=== PATIENT | female | born 1950 | race African-American/Black ===

== ENCOUNTER → 2016-05-11 | Outpatient (CLI) | payer OTHER ==
[~2016-05-11] MED LIST: ACET500T3 PO; AMLO10 PO; AMLO10TA2 PO; AMLO5TAB2 PO; ASCO500C PO; ATOR10TA15 PO; CALC1TAB12 PO; CALTCHW5 PO; CALTTAB PO; CLAR10CA3 PO; FERR1TAB36 PO; FERR325C PO; HYDR12.56 PO; HYDR25TA5 PO; K-TA10TA PO; LIPI80TA PO; METO-338 PO; NITR0.4S SL; PROT40TA PO; SPIR25 PO; SPIR25TA PO; VALT500T PO; VITACAP7 PO
[2016-05-11 12:56] LABS: AUTOMATED NEUTROPHIL # 3.8 TH/MM3 (1.8-7.7); BASOPHIL # 0.1 TH/MM3 (0-0.2); BASOPHIL % 0.8 % (0.0-2.0); EOSINOPHIL # 0.1 TH/MM3 (0-0.4); HEMO FLAGS DIFF FINAL; LYMPH % 34.1 % (9.0-44.0); LYMPHOCYTE # 2.4 TH/MM3 (1.0-4.8); MEAN CELL VOLUME 78.1 FL (80.0-100.0); MEAN CORPUSCULAR HEMOGLOBIN 25.2 PG (27.0-34.0); MEAN CORPUSCULAR HGB CONC 32.2 % (32.0-36.0); NEUT % 53.1 % (16.0-70.0); PLATELET COUNT 267 TH/MM3 (150-450); RED BLOOD COUNT 4.09 MIL/MM3 (4.00-5.30); RED CELL DISTRIBUTION WIDTH 18.3 % (11.6-17.2); WHITE BLOOD COUNT 7.2 TH/MM3 (4.0-11.0)
== END ==
LOC: CLAB 12:35
PROVIDERS: ATTEND Family Medicine
DX: D50.9 Iron deficiency anemia, unspecified (principal); Z87.19 Personal history of other diseases of the digestive system
CPT/HCPCS: 36415; 85025

== ENCOUNTER → 2016-06-08 | Outpatient (CLI) | payer OTHER ==
[2016-06-08 12:35] LABS: ANION GAP 9 MEQ/L (5-15); AST (GOT) 29 U/L (15-37); BICARBONATE 29.3 MEQ/L (21.0-32.0); BLOOD UREA NITROGEN 11 MG/DL (7-18); CHLORIDE 106 MEQ/L (98-107); GLOMERULAR FILTRATION RATE 69 ML/MIN (>89); GLUCOSE,FASTING 88 MG/DL (74-99); SODIUM (NA) 144 MEQ/L (136-145)
[2016-06-08 12:37] LABS: ALKALINE PHOSPHATASE 107 U/L (45-117); ALT (GPT) 24 U/L (10-53); TOTAL BILIRUBIN ADULT 0.3 MG/DL (0.2-1.0)
== END ==
LOC: CLAB 11:51
PROVIDERS: ATTEND Family Medicine
DX: E87.6 Hypokalemia (principal); I10 Essential (primary) hypertension; E11.9 Type 2 diabetes mellitus without complications
CPT/HCPCS: 36415; 80053

== ENCOUNTER → 2016-07-31 | Outpatient (CLI) | payer OTHER ==
[~2016-07-31] MED LIST changes: -AMLO10 PO
[2016-07-31 14:45] LABS: AUTOMATED NEUTROPHIL # 3.5 TH/MM3 (1.8-7.7); BASOPHIL # 0.1 TH/MM3 (0-0.2); BASOPHIL % 1.3 % (0.0-2.0); EOSINOPHIL # 0.1 TH/MM3 (0-0.4); EOSINOPHIL % 1.9 % (0.0-4.0); HEMATOCRIT 25.8 % (35.0-46.0); LYMPH % 36.4 % (9.0-44.0); LYMPHOCYTE # 2.6 TH/MM3 (1.0-4.8); MEAN CELL VOLUME 76.2 FL (80.0-100.0); MEAN CORPUSCULAR HEMOGLOBIN 23.7 PG (27.0-34.0); MEAN CORPUSCULAR HGB CONC 31.1 % (32.0-36.0); MONO % 10.2 % (0.0-8.0); NEUT % 50.2 % (16.0-70.0); PLATELET COUNT 369 TH/MM3 (150-450); RED BLOOD COUNT 3.39 MIL/MM3 (4.00-5.30); RED CELL DISTRIBUTION WIDTH 17.3 % (11.6-17.2); WHITE BLOOD COUNT 7.1 TH/MM3 (4.0-11.0)
[2016-07-31 14:55] LABS: HEMO FLAGS DIFF FINAL
[2016-07-31 15:11] LABS: POTASSIUM 3.6 MEQ/L (3.5-5.1)
[2016-07-31 15:40] LABS: SICKLE CELL SCREEN NEG (NEG)
[2016-08-03 13:54] LABS: IGA SERUM 399 mg/dL (81-463); TISSUE TRANSGLUTAMINASE AB IGG ND U/mL (())
[2016-08-03 17:55] LABS: ENDOMYSIAL AB TITER ND (<1:5); TISSUE TRANSGLUTAMINASE AB LESS THAN 1 U/mL (())
== END ==
LOC: CLAB 14:13
PROVIDERS: ATTEND Family Medicine
DX: I10 Essential (primary) hypertension (principal); R14.0 Abdominal distension (gaseous)
CPT/HCPCS: 36415; 80048; 82784; 83020; 83516; 85025; 85660

== ENCOUNTER 2016-08-10 09:29 | Day surgery (SDC) | payer OTHER ==
[~2016-08-10] VITALS: Ht 165.1 cm; Wt 101.7 kg
[~2016-08-10 09:29] MED LIST changes: -AMLO10TA2 PO; -CALTCHW5 PO; -CALTTAB PO; -FERR325C PO; -HYDR25TA5 PO; -LIPI80TA PO; -NITR0.4S SL; -SPIR25TA PO; -VALT500T PO
[2016-08-10] MEDS ORDERED: diphenhydrAMINE HCL 50 MG CAP ONE (10:25)
[2016-08-10] MEDS ORDERED: methylPREDNISolone SOD SUCC 125 MG/2 ML VIAL ONE (10:25)
[2016-08-10] MEDS ORDERED: NS 1000P @30 MLS/HR (KVO) IV SCH (11:00)
[2016-08-10] MEDS ORDERED: K-TA10TA PO (11:33)
[2016-08-10] MEDS ORDERED: LIPI80TA PO (11:33)
[2016-08-10] MEDS ORDERED: AMLO10TA2 PO (11:33)
[2016-08-10] MEDS ORDERED: CLAR10CA3 PO (11:33)
[2016-08-10] MEDS ORDERED: SPIR25TA PO (11:33)
[2016-08-10] MEDS ORDERED: HYDR25TA5 PO (11:34)
[2016-08-10] MEDS ORDERED: VALT500T PO (11:34)
[2016-08-10] MEDS ORDERED: PROT40TA PO (11:34)
[2016-08-10] MEDS ORDERED: METO-338 PO (11:34)
[2016-08-10] MEDS ORDERED: NITR0.4S SL (11:34)
[2016-08-10] MEDS ORDERED: CALTTAB PO (11:34)
[2016-08-10] MEDS ORDERED: FERR1TAB36 PO (11:34)
[2016-08-10 11:39] VITALS: BP 158/76; PULSE 65; RESP 16; TEMP 98; O2SAT 97
[2016-08-10 11:47] LABS: BASOPHIL # 0.1 TH/MM3 (0-0.2); BASOPHIL % 1.1 % (0.0-2.0); EOSINOPHIL # 0.1 TH/MM3 (0-0.4); EOSINOPHIL % 1.2 % (0.0-4.0); HEMATOCRIT 25.9 % (35.0-46.0); LYMPH % 31.1 % (9.0-44.0); LYMPHOCYTE # 2.2 TH/MM3 (1.0-4.8); MEAN CORPUSCULAR HEMOGLOBIN 23.6 PG (27.0-34.0); MEAN CORPUSCULAR HGB CONC 30.6 % (32.0-36.0); NEUT % 57.6 % (16.0-70.0); PLATELET COUNT 299 TH/MM3 (150-450); RED BLOOD COUNT 3.36 MIL/MM3 (4.00-5.30); RED CELL DISTRIBUTION WIDTH 18.3 % (11.6-17.2)
[2016-08-10 11:49] LABS: HEMO FLAGS AUTO DIFF
[2016-08-10 11:58] LABS: APTT (PATIENT) 26.6 SEC (24.3-30.1); PROTHROMBIN TIME - PATIENT 11.1 SEC (9.8-11.6)
[2016-08-10 12:03] LABS: BICARBONATE 27.1 MEQ/L (21.0-32.0); POTASSIUM 3.6 MEQ/L (3.5-5.1)
[2016-08-10 12:27] LABS: SCAN/DIFF AUTO DIFF CONFIRMED
[2016-08-10] MEDS ORDERED: HEPARIN-NS/PF INJ 500 ML ONE (13:54)
[2016-08-10] MEDS ORDERED: MIDAZOLAM HCL 2 MG/2 ML VIAL ONE ×2 (13:55→14:13)
[2016-08-10] MEDS ORDERED: NITROGLYCERIN INJ 5 ML ONE (13:55)
[2016-08-10] MEDS ORDERED: LIDOCAINE HCL 1% PF 30 ML VIAL ONE (14:14)
--- NOTE | 2016-08-10 14:35 | CATHPROC ---
Patient Name: LYLE MOJICA Study #: [id number] Initial MD: Rusty Alexander Date of : 1950 Study Date: 08/10/2016 Cardiac Catheterization Report 08/10/2016 2:35:36 PM Financial #: [id number] 1 of 11 Patient Name: LYLE MOJICA Study #: [id number] Initial MD: Rusty Alexander Date of : 1950 Study Date: 08/10/2016 Entire Case Report Patient Information Patient Name LYLE MOJICA Date of 1950 Age 66 years Financial # [id number] Gender F AlternateID Lab Number 4 Accession # Room Number Height (in) 65.0 Height (cm) 165.1 BSA 2.08 Weight (lbs) 223.7 Weight (kg) 101.7 Patient Address/Phone Number Home Address [facility] Home Phone Number 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 Clinical Staff Initial Rusty [facility] Specialist Tiana Shepard,DEAN Additional Bryan Dillon Other cathlab, cathlab Recorder Jamila Rocha,REGULATORY ADMINISTRATOR TECH2 Scrub Adrian Flores RCIS(BS) Procedures Performed Procedure Location (Site) Vessel Name Angiogram LV LV Ventricle Coronary Angiograms LCA Left Coronary Coronary Angiograms RCA Right Coronary L Heart Cath 08/10/2016 2:35:36 PM Financial #: [id number] 2 of 11 Patient Name: LYLE MOJICA Study #: [id number] Initial MD: Rusty Alexander Date of : 1950 Study Date: 08/10/2016 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 Description Size Mfg Part Number Used/Scraped TRANSDUCER, TRUWAVE 14:11 WILKINSON SHEPARD * [id number] Used W/STOCKCOCK [id number] *[id number] *[id number] *[id number] 14:11 MEDLINE INDUSTRIES PACK, CCL CUSTOM * Used *[id number] 14:11 Jalbum PACER PEN, SKIN DUAL W/ RULER * [id number] Used 14:11 [employer] MEDICAL WIRE, 3MMJ .035 180CM 180CM [id number] Used PROBE COVER, STERILE 14:11 [employer] MEDICAL * [id number] Used ULTRASOUND W/ GEL [id number] 14:11 NAMIC MANIFOLD, 4 PORT * Used *[id number] 14:11 NAMIC TUBING, HIGH PRESSURE 48" 48" Used *[id number] 14:11 NYCOMED OMNIPAQUE, 350 MG, 100ML 100ML [id number] Used 14:20 [employer]COMED OMNIPAQUE, 350 MG, 50ML 50ML [id number] Used [id number] 14:11 [employer] MED[employer] BLANKET,WARM AIR CCL * Used *[id number] 14:11 TERUMO MEDICAL SHEATH, FR5 TERUMO (10CM) FR 5 [id number] Used Insurance Information Insurance Payor Private Health Insurance Third Republican Third Republican Number N [facility] [facility] [place] History: Current Medications Medication Dosage/Unit Route Frequency Last Date/Time Taken LOPRESSOR LIPITOR NORVASC Valtrex History: Allergies Allergy Reaction MICHAEL Inhibitors angioedema Contrast Media 08/10/2016 2:35:36 PM Financial #: [id number] Patient Name: LYLE MOJICA Study #: [id number] Initial MD: Rusty Alexander Date of : 1950 Study Date: 017 History: Risk Factors Family History of Hypertension Dyslipidemia Previous DC Previous Heart Failure Premature CAD Yes No No No No Prior Valve Prior PCI Prior CABG Surgery No No No Cerebrovascular Peripheral Artery Chronic Lung On Dialysis Diabetes Diabetes Therapy Disease Disease Disease No No No No Yes None History: Symptoms/Diagnosis Selection Items Angina-unstable History: Stress Tests Stress or Imaging Studies Performed Yes Standard Exercise Stress Test No Stress Echo No Stress Test SPECT No Stress Test CMR Stress Test CMR Result Yes Indeterminant Cardiac CTA Coronary Calcium Score No No History: Other Disease Selection Items HTN History: Other Current Smoker No Labs Hgb (g/dl) Hct (%) RBC (MIL/MM3) WBC (l/cumm) Platelets (thousands) 12.00-18.00 37.00-55.00 4.80-6.20 4.80-10.80 140.00-450.00 7.9 25.9 3.6 7 299 Glucose (mg/dl) BUN (mg/dl) Creatinine (mg/dl) BUN:Creatinine (1:x) 60.00-110.00 8.00-20.00 0.10-9.00 10.00-20.00 93 15 0.9 16.7 08/10/2016 2:35:36 PM Financial #: [id number] 4 of 11 Patient Name: LYLE MOJICA Study #: [id number] Initial MD: Rusty Alexander Date of : 1950 Study Date: 08/10 Na (meq/l) K (meq/l) 138.00-146.00 3.80-5.10 141 3.6 PT (sec) PTT (sec) INR (PTT:PT) 9.40-11.40 25.10-32.70 0.50-2.00 11.1 26.6 1 Medication Medication Total Dose (Bolus/Oral) Medication Total Dosage/Unit 1% XYLOCAINE 20 mL FENTANYL 100 mcg PEPCID 20 mg VERSED 4 mg Medications (Bolus/Oral) Medication Time Given Dosage/Unit Administered By Reason PEPCID 08/10/2016 2:03:49 PM 20 mg Carlos Sheparda 20 mg PEPCID given in lab by Tiana Shepard RN in Left Hand via Peripheral IV. VERSED 08/10/2016 2:06:54 PM 2 mg Carlos Sheparda 2 mg VERSED given in lab by Tiana Shepard RN in Left Hand via Peripheral IV. FENTANYL 08/10/2016 2:07:16 PM 50 mcg Tiana Shepard 50 mcg FENTANYL given in lab by Tiana Shepard RN in Left Hand via Peripheral IV. 1% XYLOCAINE 08/10/2016 2:13:34 PM 20 mL Bryan Saleem 20 mL 1% XYLOCAINE given in lab by Bryan Saleem in Right Groin via Subcutaneous. VERSED 08/10/2016 2:15:27 PM 2 mg Carlos Sheparda 2 mg VERSED given in lab by Tiana Shepard RN in Left Hand via Peripheral IV. FENTANYL 08/10/2016 2:16:37 PM 50 mcg Tiana Shepard 50 mcg FENTANYL given in lab by Tiana Shepard, RN in Left Hand via Peripheral IV. Medication (Drip) Medication Time Given Dosage/Unit Concentration/Unit Diluent (ml) Solutio n IV Solutions 08/10/2016 1:47:34 PM 0 mL (IV) 500 NaCl .9 Patient arrived on IV Solutions given by cathlab, cathlab in Left Groin via Peripheral IV. Pump/Drip Flow = 20 ml/hr using NaCl .9. 08/10/2016 2:35:36 PM Financial #: [id number] Patient Name: LYLE MOJICA Study #: [id number] Initial MD: Rusty Alexander Date of : 1950 Study Date: 08/10/2016 Initial Case Assessment Cardiovascular HR NIBP 74 164/84 Edema Present Skin color Skin None Normal Warm Dry Circulatory - Right Pulses Dorsalis Pedis Femoral 2 2 Scale (0,1,2,3,4,d) Circulatory - Left Pulses Dorsalis Pedis Femoral 2 2 Scale (0,1,2,3,4,d) Neurological State Oriented to time-place- Alert Moves all extremities person Respiration - General Respiration Rate SpO2 (%) (B/min) 12 98 08/10/2016 2:35:36 PM Financial #: [id number] Patient Name: LYLE MOJICA Study #: [id number] Initial MD: Rusty Alexander Date of : 1950 Study Date: 08/10/2016 Final Case Assessment Cardiovascular HR NIBP 76 157/79 Edema Present Skin color Skin None Normal Warm Dry Circulatory - Right Pulses Dorsalis Pedis Femoral 2 2 Scale (0,1,2,3,4,d) Circulatory - Left Pulses Dorsalis Pedis Femoral 2 2 Scale (0,1,2,3,4,d) Neurological State Oriented to time-place- Alert Moves all extremities person Respiration - General Respiration Rate SpO2 (%) (B/min) 22 99 Vitals Summary Pain Time HR NIBP SpO2 Resp Temp EtCO2 Apnea Pushpa Hicks Comment Level 13:53:18 74 164/84 98.0 12 10 0 2 13:57:52 76 161/85 97.0 20 10 0 2 14:02:51 74 167/86 97.0 20 10 0 2 14:07:54 75 164/85 97.0 13 10 0 2 14:12:51 74 160/89 97.0 19 10 0 2 14:18:31 75 145/83 95.0 22 10 0 2 14:22:49 74 157/85 94.0 13 10 0 2 14:27:54 76 157/79 99.0 22 10 0 2 08/10/2016 2:35:36 PM Financial #: [id number] Patient Name: LYLE MOJICA Study #: [id number] Initial MD: Rusty Alexander Date of : 1950 Study Date: 08/10/2016 Pushpa Score Summary Time Activity Resp Circ LOC Color Total Score 13:53:18 2 2 2 2 2 10 13:57:52 2 2 2 2 2 10 14:02:51 2 2 2 2 2 10 14:07:54 2 2 2 2 2 10 14:12:51 2 2 2 2 2 10 14:18:31 2 2 2 2 2 10 14:22:49 2 2 2 2 2 10 14:27:54 2 2 2 2 2 10 Pushpa Score Definition Table Activity - 0 Activity - 1 Activity - 2 No Movement to Command Weak Hand Grasp Lift Head, Good Hand Grasp Respiration - 0 Respiration - 1 Respiration - 2 Apneic or Obstructed Shallow Breath, Airway Adjunct Deep Breath, Cough Freely Circulation - 0 Circulation - 1 Circulation - 2 B/P > 50% Admission B/P B/P > 20-50% Admission B/P B/P Stable X3 Level of Consciousness - 0 Level of Consciousness - 1 Level of Consciousness - 2 Not Responding Arousable On Calling Awake and Aware Color - 0 Color- 1 Color - 2 Cyanotic Lips, Nailbed, Skin Pale, Dusky [place] Or Normal Chronological Log Time Study Chronological Log 13:47:18 Patient arrived via Bed. 13:47:19 Patient Name, D.O.B, / Armband Verified By R.N. 13:47:20 Pre-op and post- op instructions given; patient acknowledges understanding of instruction s. 13:47:21 Verbal Stimulation=2 Physical Stimulation=2 Airway=2 Respiration=2 TOTAL=8. (0=absent, 1= limited, 2=present) 13:47:24 Patient has been NPO for Less than 6Hrs. 13:47:27 Skin Breakdown- 13:47:30 Patient Warmer Placed on the Table. 13:47:34 A # 20 IV was noted in the Hand (left). Grade = 0 Patient arrived on IV Solutions given by cathlab, cathlab in Left Groin via Peripheral IV. Pu mp/Drip Flow = 20 ml/hr 13:47:34 using NaCl .9. 13:47:35 History and physical on the chart or being dictated. Vitals capture started with the following parameters, Patient=Adult, Interval=15 min, Initial Vdpxhesd=302 mmHg, 13:52:05 Deflation Rate=5 mmHg 13:53:18 HR=74 bpm, AHNL=658/84 mmhg, SpO2=98.0 %, Resp=12 B/min, Pain=0, Psuhpa=10, Hicks=2 08/10/2016 2:35:36 PM Financial #: [id number] Patient Name: LYLE MOJICA Study #: [id number] Initial MD: Rusty Alexander Date of : 1950 Study Date: 08/10/2016 Assessment: Initial Case, HR=74 BPM, PYPM=616/84 mmhg, Edema=None, Color=Normal, Skin = Warm, D ry Right Pulses: Paul Ped=2, Femoral=2 13:54:30 Left Pulses: Paul Ped=2, Femoral=2 Neurological: State=Alert, Ox3, KAMINSKI Respiration: Resp=12 B/min, SpO2=98 % 13:57:49 Reference ECG taken 13:57:52 HR=76 bpm, DBZC=014/85 mmhg, SpO2=97.0 %, Resp=20 B/min, Pain=0, Pushpa=10, Hicks=2 14:02:51 HR=74 bpm, WWNT=892/86 mmhg, SpO2=97.0 %, Resp=20 B/min, Pain=0, Pushpa=10, Hicks=2 14:03:23 Bilateral groins prepped with 2% chlorhexidine, and with a 3 min. waiting time. 14:03:49 20 mg PEPCID given in lab by Tiana Shepard RN in Left Hand via Peripheral IV. 14:06:54 2 mg VERSED given in lab by Tiana Shepard RN in Left Hand via Peripheral IV. 14:07:16 50 mcg FENTANYL given in lab by Tiana Shepard RN in Left Hand via Peripheral IV. 14:07:54 HR=75 bpm, NUUK=828/85 mmhg, SpO2=97.0 %, Resp=13 B/min, Pain=0, Pushpa=10, Hicks=2 14:08:47 Pressure channel 1 zeroed. 14:12:51 HR=74 bpm, NQCU=403/89 mmhg, SpO2=97.0 %, Resp=19 B/min, Pain=0, Pushpa=10, Hicks=2 Time Out. Correct patient, correct procedure,correct physician, power injector loaded not loade d with contrast with 14:13:00 surgical team present. Time Out Concurred by MD, individual staff in procedure 14:13:32 Case Start 14:13:34 20 mL 1% XYLOCAINE given in lab by Bryan Saleem in Right Groin via Subcutaneous. 14:15:27 2 mg VERSED given in lab by Tiana Shepard RN in Left Hand via Peripheral IV. 14:16:37 50 mcg FENTANYL given in lab by Tiana Shepard RN in Left Hand via Peripheral IV. 14:17:08 Access site was Right Femoral Artery. 14:17:19 A SHEATH, FR5 TERUMO (10CM) FR 5 was advanced into the Fem Art (right) using the Modified S eldinger technique. A PIGTAIL ANG. INFINITI CATHETER FR 5 was advanced over a wire. OMNIPAQUE, 350 MG, 100ML 100ML was used 14:17:29 for injections. Recorded Pressure: LV, HR=77, Condition=Condition 1 14:18:15 (Left Ventricle) LV 155/13/22 14:18:31 HR=75 bpm, PXZG=332/83 mmhg, SpO2=95.0 %, Resp=22 B/min, Pain=0, Pushpa=10, Hicks=2 14:19:14 The LV was injected at 10 cc/sec for a total of 30. OMNIPAQUE, 350 MG, 50ML 50ML used. Recorded Pressure: LV, Ao, HR=77, Condition=Condition 1 14:20:03 (Left Ventricle) LV 143/8/31, (Aorta) Ao 147/72/103 14:20:34 Catheter was removed A JL 4.0 INFINITI CATHETER FR 5 was advanced over a wire. OMNIPAQUE, 350 MG, 100ML 100ML was us ed for 14:20:35 injections. Recorded Pressure: Ao, HR=70, Condition=Condition 1 14:21:01 (Aorta) Ao 148/73/103 14:21:35 The LCA was injected and visualized at various angles. OMNIPAQUE, 350 MG, 100ML 100ML used . 14:22:49 HR=74 bpm, AQDZ=135/85 mmhg, SpO2=94.0 %, Resp=13 B/min, Pain=0, Pushpa=10, Hicks=2 14:23:07 Catheter was removed A AR MOD INFINITI CATHETER FR 5 was advanced over a wire. OMNIPAQUE, 350 MG, 100ML 100ML was us ed for 14:23:10 injections. 14:24:24 Catheter was removed 14:24:30 The RCA was injected and visualized at various angles. OMNIPAQUE, 350 MG, 100ML 100ML used . 08/10/2016 2:35:36 PM Financial #: [id number] Patient Name: LYLE MOJICA Study #: [id number] Initial MD: Rusty Alexander Date of : 1950 Study Date: 08/10/2016 14:25:33 Case End 14:26:51 Catheter(s) removed without difficulty 14:26:58 Sheath(s) left in place, will be removed in Holding Area 14:27:03 Sterile dressing applied to site 14:27:04 No case complications noted. 14:27:07 Cine recording checked. 14:27:24 Bedside Report will be given. 14:27:54 HR=76 bpm, UIYR=538/79 mmhg, SpO2=99.0 %, Resp=22 B/min, Pain=0, Pushpa=10, Hicks=2 Assessment: Final Case, HR=76 BPM, JFXH=490/79 mmhg, Edema=None, Color=Normal, Skin = Warm, Dr y Right Pulses: Paul Ped=2, Femoral=2 14:31:09 Left Pulses: Paul Ped=2, Femoral=2 Neurological: State=Alert, Ox3, KAMINSKI Respiration: Resp=22 B/min, SpO2=99 % 14:31:15 Vitals capture stopped. 14:32:25 A Left Heart Cath was performed. 14:32:27 Contrast Scanned 14:32:31 Patient moved to stretcher Recorded Pressures: Condition 1 Time Chamber Pressure Manual Override (*) 14:18:15 LV 155/13/22 s/bd/ed 14:20:03 LV 143/8/31 s/bd/ed 14:20:03 Ao 147/72/103 s/d/m 14:21:01 Ao 148/73/103 s/d/m End Study - Contrast Media Used In Study Contrast Total Opened (mL) Total Used (mL) Total Wasted (mL) Hypaque 76 120 120 0 End Study - Maximum Contrast Load Max Contrast Load (mL) 564.9 End Study - Radiation Exposure Fluoro Time (minutes) 1.5 08/10/2016 2:35:36 PM Financial #: [id number] Patient Name: LYLE MOJICA Study #: [id number] Initial MD: Rusty Alexander Date of : 1950 Study Date: 08/10/2016 End Study - Patient Disposition Complications Transferred To No Telemetry Bed 08/10/2016 2:35:36 PM Financial #: [id number]
[2016-08-10] MEDS ORDERED: IOHEXOL 350 MG/ML 100 ML BTL (for Cath Lab) OTHER ONE (15:09)
--- NOTE | 2016-08-11 13:47 | EKG ---
Date Performed: 08/10/2016 Time Performed: 11:33:04 PTAGE: 66 years EKG: Sinus rhythm . LVH with secondary repolarization abnormality Anterolateral ST-T changes are probably due to ventri cular hypertrophy Since previous tracing, no significant change noted Abnormal ECG PREVIOUS TRACING : 01/18/2016 10.31 DOCTOR: Awa Panchal Interpretating Date/Time 08/11/2016 13:47:37
--- NOTE | 2016-08-13 09:51 | MR ---
cc: BRYAN SORENSON MD DATE: 08/10/16 INDICATION Unstable angina, class III angina, intermediate probability nuclear myocardial perfusion study. PROCEDURE: 1. Retrograde left heart catheterization with left ventriculography and selective coronary angiography. ACCESS SITE Right femoral artery EQUIPMENT USED 5-[place] pigtail catheter 5-[place] JL4 and JR modified coronary artery catheters MEDICATIONS IV Fentanyl CONTRAST Omnipaque 120 mL COMPLICATIONS None. BLOOD LOSS Less than 10 mL METHOD OF HEMOSTASIS Manual compression RESULTS OF HEMODYNAMICS Heart rate 75 beats per minute. Left ventricular end diastolic pressure 8 mmHg. Left ventricle 143/8 Aorta 143/73/95 LEFT VENTRICULOGRAPHY Ejection fraction 70%. Wall motion normal. No mitral regurgitation. CORONARY ANGIOGRAPHY Left main coronary artery patent. Left anterior descending artery patent. D1 small, patent. Circumflex artery patent. OM 1 is a very large vessel which is patent. Ramus intermediate patent. Right coronary artery is a dominant vessel which is patent. PDA patent. PLV patent. DIAGNOSES 1. Widely patent coronary arteries 2. Well preserved left ventricular systolic function DISPOSITION Ms. Moya can be reassured about her cardiac status. Her study showed widely patent coronary arteries and preserved left ventricular systolic function. I recommend to proceed with GI evaluation including endoscopy as planned next week. She will be discharged home later today. Bryan Sorenson MD OGautam/ /2:34 PM /9:33 AM MTDOsvaldo
[2016-09-15] MEDS ORDERED: CALTCHW5 PO (00:09)
[2016-09-15] MEDS ORDERED: FERR325C PO (00:09)
== END 2016-08-10 19:30 | disposition home or self-care (01) ==
LOC: HDIC 09:29 → HDOC 09:29
PROVIDERS: ATTEND Internal Medicine Interventional Cardiology
DX: I20.0 Unstable angina (principal); I10 Essential (primary) hypertension; E11.9 Type 2 diabetes mellitus without complications; E78.5 Hyperlipidemia, unspecified; K92.2 Gastrointestinal hemorrhage, unspecified; M19.90 Unspecified osteoarthritis, unspecified site; Z01.818 Encounter for other preprocedural examination; Z01.810 Encounter for preprocedural cardiovascular examination
CPT/HCPCS: 80048; 85025; 85610; 85730; 93005; 93458; C1769; C1893; J1644; J2250; J2930; J3010; Q0163; Q9967

== ENCOUNTER 2016-09-15 01:15 | Inpatient (IN) | payer OTHER ==
[~2016-09-15] VITALS: Ht 165.1 cm; Wt 105.6 kg
[2016-09-15] VITALS (11 sets, daily range): BP systolic 141–164; BP diastolic 67–98; PULSE 70–93; RESP 17–18; TEMP 96.2–99.1; O2SAT 95–99
[~2016-09-15 01:15] MED LIST changes: +AMLO10TA2 PO; -AMLO5TAB2 PO; -ASCO500C PO; -ATOR10TA15 PO; -CALC1TAB12 PO; +CALTCHW5 PO; +CALTTAB PO; +FERR325C PO; -HYDR12.56 PO; +HYDR25TA5 PO; +LIPI80TA PO; +NITR0.4S SL; -SPIR25 PO; +SPIR25TA PO; +VALT500T PO; -VITACAP7 PO
[2016-09-15] MEDS ORDERED: SODIUM CHLORIDE 0.9% FLUSH 10 ML FLUSH IV FLUSH PRN (08:45)
[2016-09-15] MEDS: SODIUM CHLORIDE 0.9% FLUSH 10 ML FLUSH IV FLUSH SCH ×2 (09:00→20:51)
[2016-09-15] MEDS ORDERED: ONDANSETRON HCL 4 MG/2 ML VIAL IVP PRN (09:45)
[2016-09-15] MEDS ORDERED: NALOXONE HCL 0.4 MG/ML AMP IV PRN (09:45)
[2016-09-15] MEDS ORDERED: GLUCAGON 1 MG/ML VIAL OTHER PRN (10:00)
[2016-09-15] MEDS ORDERED: DEXTROSE 50% IN WATER 50 ML VIAL(D50) IV PRN (10:00)
[2016-09-15] MEDS ORDERED: SODIUM CHLOR 0.9% 250 ML INJ 250 ML IV ONE (10:00)
[2016-09-15] MEDS: SODIUM CHLOR 0.9% 1000 ML INJ 1,000 ML IV SCH ×2 (10:40→21:00)
[2016-09-15] MEDS: INSULIN ASPART SUPPLEMENTAL SCALE SQ SCH ×3 (11:00→20:52)
[2016-09-15 11:43] LABS: REVIEW FLAG FINAL
[2016-09-15 11:47] LABS: HEMATOCRIT 14.9 % (35.0-46.0)
--- NOTE | 2016-09-15 15:37 | MB ---
cc: RODRIGO WEAVER M.D. DATE OF CONSULTATION: 09/15/2016. REASON FOR CONSULTATION: Chronic life-threatening anemia. PATIENT PROFILE: The patient is a 66-year black female. She is . She has been twice. She has two children, a son and daughter. She was born in [place], [place]. She does not smoke and she does not drink. She works at [employer] [place] HISTORY OF PRESENT ILLNESS: The patient is a 66-year-old female who remembers developing anemia in approximately late 2012. Prior to this, she had a normal CBC and platelet count. In looking back over her blood counts, on 05/04/2008, she had a hemoglobin of 12.7, white count 5400, platelet of 250,000 and the MCV was 84. In April of 2013, she had a hemoglobin of 10.2. On October 05 2015, she had a hemoglobin of 5.7, hematocrit of 17, MCV was 76 and platelets were 295,000. The differential was unremarkable. She has had a number of studies at different times. On October 05, 2015, she had a serum ferritin of 7. She had a serum protein electrophoresis in 2012 which is negative for a paraprotein and polyclonal immunoglobulins were increased. LDH in September of 2015 was 274, slightly above the normal range. Serum iron in August of 2015 was 21. TIBC was 406 and saturation was 5%. She denies having any documented bleeding. No melena, hematochezia, hematemesis. Her health has been stable. When she is anemic, she becomes short of breath, weak, and lightheaded. She has had three colonoscopies with the last one in December of 2015 and she had an upper endoscopy in 2015 which was negative except for possibly a polyp and very minimal gastritis which was not felt to be a source of bleeding. She has had two pill endoscopies done by Dr. Alvares and she states that these likewise were negative. During the past few weeks, she noted increasing weakness, shortness of breath and felt that she was going to . On 09/15/2016, her hemoglobin was 5.1, white count 10,700, platelets 255,000. The MCV is 77. The RDW is 18. There are teardrops, ovalocytes and stomatocytes. Other studies have included on 07/31/2016 a hemoglobin electrophoresis which is normal. A chest x-ray on 09/15 2016 shows linear atelectasis. There has been no change in health except for the associated symptoms of the anemia. PAST SURGICAL HISTORY: 1. Total abdominal hysterectomy and bilateral salpingo-oophorectomy. 2. Tubal ligation. PAST MEDICAL HISTORY: 1. Diabetes. She states that she is not taking any medications has been noncompliant. 2. Hypertension. 3. Elevated cholesterol. 4. Anemia as described above. 5. In July of 2015, she states that she had a cardiac cath by Dr. Saleem and no significant disease was identified. MEDICATIONS PRIOR TO ADMISSION: 1. Amlodipine. 2. Calcium. 3. Iron sulfate 325 milligrams a day. She has been taking oral iron for at least a year. 4. Hydrochlorothiazide. 5. Claritin. 6. Metoprolol. 7. Nitrostat PRN. 8. Protonix. 9. Potassium. 10. Spironolactone. 11. She did not indicate during conversation she was taking Valtrex but this is listed as one of the medications. ALLERGIES: MICHAEL INHIBITORS. FAMILY HISTORY: Mother and father both of complications of alcoholism. REVIEW OF SYSTEMS: No change in vision or hearing. CARDIOVASCULAR: Occasional palpitations. RESPIRATORY: Mild exertional shortness of breath which has worsened recently. GI: No melena acute hematemesis or dysphasia. She denies any blood whatsoever. : No dysuria, frequency, hematuria. MUSCULOSKELETAL: No bone pain. NEUROLOGIC: No weakness. The review of systems is essentially unremarkable except for occasional arthritic pains and the shortness of breath, weakness, fatigue and lightheadedness associated with her anemia. PHYSICAL EXAMINATION: GENERAL: Physical exam reveals a well-appearing female. VITAL SIGNS: Blood pressure 140/70, respiratory rate 18, pulse 80 afebrile. O2 sat is 96%. HEAD, EYES, EARS, NOSE, THROAT: Head is normocephalic. The sclerae and conjunctivae are normal. Oropharynx unremarkable. LYMPHATIC: No cervical, supraclavicular, axillary or inguinal adenopathy. BREASTS: Pendulous without masses. HEART: Regular rhythm. LUNGS: Clear without wheezes, rales or rhonchi. ABDOMEN: Abdomen soft. There is no enlargement of the liver or spleen. No masses. No tenderness. EXTREMITIES: No edema. MUSCULOSKELETAL: No bone pain. NEUROLOGIC: No weakness. Cognition and affect are normal. SKIN: Normal. RECTAL: A rectal exam was done. There are no masses. The stool is brown and is markedly heme-test positive. ASSESSMENT: The patient is a 66-year-old female. She has recurrent anemia associated with iron deficiency. Her stools are markedly heme-positive. Her GI workup has been negative. RECOMMENDATIONS: 1. I would recommend transfusing to a safe level, probably to a hemoglobin of around 8 or 9. 2. I am going to give her IV iron Dextran tomorrow. I will check iron studies today. 3. She may require repeat upper endoscopy as she has only had one upper endoscopy and there is no question that she is bleeding based on the rectal exam. 4. If bleeding stops and iron stores adequate and the anemia is persistent, then she will require a bone marrow. 5. At the present time, there appears to be an explanation with the heme-positive stools and the iron deficiency, although the degree of anemia seems to be disproportionate with the mean corpuscular volume. 6. She will require GI consultation. 7. I will order the iron dextran infusion for tomorrow and in the meantime have requested iron studies, serum protein and immunoelectrophoresis, ferritin, reticulocyte count and also a B12 level in case the anemia is due to B12 and iron deficiency as surprisingly the MCV is not lower. MD NEVAEH Kelly/PK /1:24 PM /3:17 PM UBALDO
[2016-09-15] MEDS: METOPROLOL TARTRATE 100 MG TAB PO SCH ×2 (15:38→20:50)
[2016-09-15] MEDS: HYDROCHLOROTHIAZIDE 25 MG TAB PO SCH (15:38)
--- NOTE | 2016-09-15 16:20 | HHI.HP ---
HPI Service Family Medicine Primary Care Physician No Primary Care Physician Admission Diagnosis Diagnoses: Chief Complaint: Fatigue International Travel<30 Days: No Contact w/Intl Traveler<30days: No History of Present Illness Patient is a 46-year-old black female, with a past medical history of type 2 diabetes, chronic anemia, high blood pressure, high cholesterol, and normal cardiac catheter in 2015, resenting with increasing fatigue, as well as black stools for the past week. HPI: She was evaluated at the [facility] family and sports medicine clinic on 09/14, by Dr. Alexander, and a bedside H&H at that time was found be 6.0. She was urged to go to the [place] emergency department. She waited until later that evening, until she got home, to go to the ED. A hemoglobin at that time was 5.1. He was transferred here from [place] emergency department. In general, she has been having increasing weakness, shortness of breath, and dark stools for the past several weeks. She has had 3 colonoscopies in the last 2 years, with the last one being in December 2015. She also more recently had a capsule endoscopy in August 16, 2016. Her information assurance officer is Dr. Alvares. Per the patient this was within normal limits, and showed no source of bleeding. She denies being on any blood thinners, excessive use of NSAIDs, or alcohol use. (Reji Goodrich MD R2) Review of Systems Constitutional: COMPLAINS OF: Fatigue, DENIES: Fever, Weight gain, Weight loss , Chills Eyes: DENIES: Blurred vision Respiratory: DENIES: Cough, Sputum production Gastrointestinal: COMPLAINS OF: Abdominal pain, Black stools, DENIES: Bloody stools, Constipation, Diarrhea, Nausea, Vomiting Musculoskeletal: DENIES: Joint pain, Stiffness (Reji Goodrich MD R2) Past Family Social History Past Medical History Diabetes mellitus, [id number] Cardiac workup including catheterization on September 10, showed no vessel disease per patient High cholesterol Anemia as described above Iron deficiency Past Surgical History Total hysterectomy Tubal ligation (Reji Goodrich MD R2) Allergies: Coded Allergies: MICHAEL Inhibitors (Verified Allergy, Severe, angioedema, 09/14/16) Contrast Media (Verified Allergy, Severe, 09/14/16) Family History Denies a family history of stomach problems, denies inflammatory bowel disease in her family. No stomach cancer in her family. Parents were "alcoholics" Social History He denies a history of tobacco, alcohol, or illicit drug use. 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 (Reji Goodrich MD R2) Physical Exam Vital Signs Vital Signs Date Time Temp Pulse Resp B/P Pulse Ox O2 Delivery O2 Flow Rate FiO2 09/15/16 11:57 98.1 93 18 145/71 96 09/15/16 11:05 97 21 09/15/16 08:00 96.5 89 18 146/67 97 Physical Exam GENERAL: resting comfortably in bed, sitting upright. SKIN: No rashes, ecchymoses or lesions. Cool and dry. HEAD: Atraumatic. EYES: Pupils equal round and reactive. Scleral pallor. ENT: Nose without bleeding, purulent drainage or septal hematoma. Throat without erythema, tonsillar hypertrophy or exudate. Uvula midline. Airway patent. NECK: Trachea midline. CARDIOVASCULAR: 2 out of 6 systolic ejection murmur at the left sternal border. RESPIRATORY: Clear to auscultation. GASTROINTESTINAL: Abdomen soft, non-tender, nondistended. MUSCULOSKELETAL: Extremities without clubbing, cyanosis, or edema. NEUROLOGICAL: Awake and alert. Cranial nerves II through XII intact. Laboratory Laboratory Tests Test 09/15/16 11:27 Hemoglobin 4.7 Hematocrit 14.9 Blood Type O POSITIVE Antibody Screen NEGATIVE Crossmatch Leukocyte-Reduced Red Blood Cells Blood Bank Comment (Reji Goodrich MD R2) Result Diagram: 09/15/16 1127 Septic Shock Reassessment Heart: Regular rate and rhythm Lungs: Clear Skin: Warm Peripheral Pulses: Bounding Right Radial Bounding Left Radial Capillary Refill: <2 seconds (Reji Goodrich MD R2) Assessment and Plan Assessment and Plan 66 y/o female with chronic anemia presenting with 2-3 weeks of worsening fatigue , lightheadedness, and dark stools. Hgb in [place] Ed was found to be 5.1 g/dL. Hemoccult ++ on exam today 09/15. She will be admitted for a suspected Upper GI bleed (blood transfusions, IV Protonix, and IVF). Code Status Full Code. (Reji Goodrich MD R2) Attending Attestation The patient has been seen and examined. The chart and all resident notes have been reviewed. I agree that inpatient care is appropriate and that a two midnight stay is expected for the reasons documented in the resident history and physical. I have discussed this with the resident and certify the resident s order for inpatient admission. (Venessa Mcintyre MD) Problem List: (1) Anemia Status: Acute Plan: Hemoglobin on admission 4.7, hematocrit 14.9. Hemoccult positive. Suspect upper GI bleed. Capsule endoscopy in August 15, 2016, was negative for any source of GI bleeding. PLAN: -Consult gastroenterology, we appreciate their recommendations -Transfuse 2 units of packed red blood cells, trend H&H every 6 hours, goal H &H > 8.0 -IV Protonix 40 mg IV, twice a day. -Hematology consult given chronic anemia. Recommend iron infusion, as well as lab work including iron profile, protein electrophoresis, reticulocyte count , and LDH. We appreciate their care of Mrs. Moya. (2) Type 2 diabetes mellitus Status: Acute Plan: Hold home medications, insulin sliding scale, NovoLog as needed. (3) Heart murmur Status: Chronic Plan: Heart murmur since adolescence. We'll continue to monitor. Recent cardiac workup negative. (4) Hypertension Status: Chronic Plan: Blood pressure on admission was elevated to 164/74. We'll continue home metoprolol (100 mg BID), hydrochlorothiazide 25 mg dialy). Hold amlodipine given GI bleeding. (5) Hyperlipidemia Status: Chronic Plan: Statin therapy on discharge. Follow-up with PCP. (6) Fluids, Electrolytes, and Nutrition Status: Acute Plan: Electrolytes: At goal, continue to trend. Nutrition: Nothing by mouth. DVT: mechanical ppx / SCDs dw Dr. Mcintyre (Reji Goodrich MD R2) Problem List: (1) Anemia Status: Acute Plan: Hemoglobin on admission 4.7, hematocrit 14.9. Hemoccult positive. Suspect upper GI bleed. Capsule endoscopy in August 15, 2016, was negative for any source of GI bleeding. PLAN: -Consult gastroenterology, we appreciate their recommendations -Transfuse 2 units of packed red blood cells, trend H&H every 6 hours, goal H &H > 8.0 -IV Protonix 40 mg IV, twice a day. -Hematology consult given chronic anemia. Recommend iron infusion, as well as lab work including iron profile, protein electrophoresis, reticulocyte count , and LDH. We appreciate their care of Mrs. Moya. (2) Type 2 diabetes mellitus Status: Acute Plan: Hold home medications, insulin sliding scale, NovoLog as needed. (3) Heart murmur Status: Chronic Plan: Heart murmur since adolescence. We'll continue to monitor. Recent cardiac workup negative. (4) Hypertension Status: Chronic Plan: Blood pressure on admission was elevated to 164/74. We'll continue home metoprolol (100 mg BID), hydrochlorothiazide 25 mg dialy). Hold amlodipine given GI bleeding. (5) Hyperlipidemia Status: Chronic Plan: Statin therapy on discharge. Follow-up with PCP. (6) Fluids, Electrolytes, and Nutrition Status: Acute Plan: Electrolytes: At goal, continue to trend. Nutrition: Nothing by mouth. DVT: mechanical ppx / SCDs dw Dr. Mcintyre (Venessa Mcintyre MD) Physician Certification 2 Midnight Certification Type: Admission for Inpatient Services Order for Inpatient Services The services are ordered in accordance with Medicare regulations or non- Medicare payer requirements, as applicable. In the case of services not specified as inpatient-only, they are appropriately provided as inpatient services in accordance with the 2-midnight benchmark. Estimated LOS (days): 2 2 days is the estimated time the patient will need to remain in the hospital, assuming treatment plan goals are met and no additional complications. Post-Hospital Plan: Home (Reji Goodrich MD R2) Problem Qualifiers (1) Anemia: Qualified Code: D50.0 - Iron deficiency anemia due to chronic blood loss Reji Goodrich MD R2 Sep 15, 2016 16:20 Venessa Mcintyre MD Sep 16, 2016 14:49
[2016-09-15 17:22] LABS: RETIC % 4.1 % (0.4-3.0); REVIEW FLAG FINAL
[2016-09-15] MEDS: DOCUSATE SODIUM 50 MG/SENNA 8.6 MG TAB PO SCH (20:51)
[2016-09-15] MEDS: PANTOPRAZOLE SODIUM 40 MG VIAL IV SCH (20:55)
[2016-09-15] MEDS ORDERED: cloNIDine HCL 0.1 MG TAB PO PRN (23:15)
[2016-09-15 23:58] LABS: REVIEW FLAG FINAL
[2016-09-16] VITALS (8 sets, daily range): BP systolic 150–179; BP diastolic 72–83; PULSE 61–86; RESP 17–22; TEMP 95.7–97.8; O2SAT 94–98
[2016-09-16 00:12] LABS: LDH SERUM 190 U/L (84-246)
[2016-09-16 00:33] LABS: KAPPA LAMBDA RATIO 1.96 (1.57-3.93); TOTAL PROTEIN SPE 6.5 GM/DL (6.0-7.6)
[2016-09-16 00:37] LABS: FERRITIN 5 NG/ML (8-252); TRANSFERRIN IRON PROFILE 276 MG/DL (200-360)
[2016-09-16] MEDS ORDERED: SODIUM CHLOR 0.9% 250 ML INJ 250 ML IV ONE (02:00)
[2016-09-16] MEDS: ACETAMINOPHEN/HYDROcodone 325 MG/5 MG TAB PO PRN ×2 (02:40→18:17)
[2016-09-16] MEDS: INSULIN ASPART SUPPLEMENTAL SCALE SQ SCH ×4 (05:58→20:43)
[2016-09-16] MEDS: SODIUM CHLOR 0.9% 1000 ML INJ 1,000 ML IV SCH ×2 (07:00→20:49)
--- NOTE | 2016-09-16 08:16 | HHI.FPPN ---
Subjective Subjective Patient seen and examined with the resident team. Case reviewed and discussed Please refer to resident H&P for further details regarding HPI, ROS, PMH, SurgHx , Fh and SocHx In summary, patient is a 66yoF presenting with several weeks history of dark stools. She had seen her PCP last week with a hgb notable at 6. She recently underwent capsule endoscopy by Dr. Alvares which per the patient was unremarkable. Upon arrival hgb 4.7 Hemoccult + Patient seen in her hospital room this am, reports feeling better after blood transfusion [facility] Objective Objective Laboratory Tests - Abnormals Test 09/15/16 09/15/16 11:27 23:15 Hemoglobin 4.7 GM/DL 6.9 GM/DL Hematocrit 14.9 % 21.0 % Reticulocyte Count 4.1 % Iron Level 28 MCG/DL Percent Iron Saturation 7.2 % Ferritin 5 NG/ML Immunoglobulin M 44 MG/DL Vital Signs 09/15/16 09/15/16 09/15/16 09/15/16 11:05 11:57 12:58 16:00 Temp 98.1 98.5 96.8 Pulse 93 89 76 Resp 18 B/P 145/71 148/80 164/74 Pulse Ox 97 96 97 95 FiO2 21 09/15/16 09/15/16 09/15/16 09/15/16 18:15 18:30 20:20 22:30 Temp 97.5 99.1 96.4 96.2 Pulse 70 71 75 73 Resp 18 18 18 18 B/P 142/98 141/76 163/75 163/80 Pulse Ox 98 99 98 96 09/15/16 09/15/16 09/16/16 09/16/16 22:35 23:40 02:30 04:00 Temp 96.2 98.6 95.7 97.4 Pulse 73 79 70 71 Resp 18 20 17 B/P 163/80 142/68 150/72 154/81 Pulse Ox 96 96 94 97 09/16/16 09/16/16 04:00 04:30 Temp 97.4 97.7 Pulse 71 70 Resp 17 B/P 154/81 156/73 Pulse Ox 97 96 INTAKE & OUTPUT 09/16/16 07:00 Intake Total 240 ml Balance 240 ml Physical exam GENERAL: wdwn female sitting up in the chair SKIN: Warm and dry. NO rashes HEAD: Normocephalic. AT EYES: No scleral icterus. No injection or drainage. ENT: OP clear. MMM NECK: Supple, trachea midline. No JVD or lymphadenopathy. CARDIOVASCULAR: Regular rate and rhythm without murmurs, gallops, or rubs. RESPIRATORY: Breath sounds equal bilaterally. No accessory muscle use. GASTROINTESTINAL: Abdomen soft, nminimal tenderness over Lower quadrants, nondistended. No rebound. Normal active BS MUSCULOSKELETAL: No cyanosis, or edema. No calf tenderness BACK: Nontender without obvious deformity. No CVA tenderness. Assessment Assessment 66yoF admitted with: Acute blood loss anemia GIB Symptomatic anemia Diabetes mellitus, [id number]-[id number] Cardiac workup including catheterization on September 10, showed no vessel disease per patient High cholesterol Anemia as described above Iron deficiency PLAN PLAN IVF Protonix prbcs, hgb 8-9 Iron Hematology and GI consult, appreciate expertise Serial hgb resume home meds as appropriate SCDs Patient seen and examined. Case reviewed and discussed Agree with plan of care as discussed with me and documented in the resident note. Venessa Mcintyre MD Sep 16, 2016 08:16
[2016-09-16] MEDS: PANTOPRAZOLE SODIUM 40 MG VIAL IV SCH ×2 (08:37→20:49)
[2016-09-16] MEDS: amLODIPine BESYLATE 5 MG TAB PO SCH (08:39)
[2016-09-16] MEDS: METOPROLOL TARTRATE 100 MG TAB PO SCH ×2 (08:39→20:47)
[2016-09-16] MEDS: SODIUM CHLORIDE 0.9% FLUSH 10 ML FLUSH IV FLUSH SCH ×2 (08:39→20:48)
[2016-09-16] MEDS: DOCUSATE SODIUM 50 MG/SENNA 8.6 MG TAB PO SCH ×2 (08:40→20:47)
[2016-09-16] MEDS: HYDROCHLOROTHIAZIDE 25 MG TAB PO SCH (08:40)
[2016-09-16] MEDS ORDERED: ACETAMINOPHEN 325 MG TAB PO ONE (09:00)
[2016-09-16] MEDS ORDERED: DEXAMETHASONE SOD PHOS 20 MG/5 ML VIAL IV ONE (09:00)
[2016-09-16] MEDS ORDERED: diphenhydrAMINE HCL 50 MG CAP PO ONE (09:00)
[2016-09-16] MEDS ORDERED: SODIUM CHLORIDE 0.9% IV ONE ×2 (09:30→17:00)
[2016-09-16] MEDS ORDERED: IRON DEXTRAN IV ONE ×4 (09:30→18:30)
[2016-09-16] MEDS ORDERED: IRON DEXTRAN INJ 100 MG in SODIUM CHLORIDE 0.9% INJ 100 ML IV ONE ×2 (10:00→17:45)
[2016-09-16] MEDS ORDERED: SODIUM CHLORID 0.9% IV ONE ×2 (10:30→18:30)
--- NOTE | 2016-09-16 10:48 | PD.CONS ---
GI Consult GI Consult SEE FORMAL GI CONSULT ALSO ([id number]) ASSESSMENT/PLAN: 1. OB + stools. no active bleeding noted per pt however she does take iron pills so stools are dark at times. Colon in 10/14 showed colon polyps and EGD in 10/14 showed gastritis, Capsule endoscope done 08/15 showed gastric erosions. The capsule did not reach the colon so the distal small bowel was not seen. ? small AVM. 2. Anemia--pt has had numerous procedures w/o any exact etiology. Celiac panel was negative 3. gastric erosions PLAN: 1. PPI 2. Transfuse as needed 3. agree with Iron infusions 4. Because of possible dark stools will do an EGD but if negative please consider a Double Balloon enteroscopy to look at the entire small bowel for an AVM's, ulcers etc. This is not available in our community-she will need tertiary care evaluation in this regard It was a pleasure seeing Sridevi Moya . Thank you for this consult. Entered by: Navarro Stoll MD Sep 16, 2016 10:48
--- NOTE | 2016-09-16 11:15 | PD.ONC.PN ---
Subjective Subjective Remarks Afebrile overnight. Breathing OK C/o "being cold" Asking to have diet advanced Objective Data Date Time Temp Pulse Resp B/P Pulse Ox O2 Delivery O2 Flow Rate FiO2 09/16/16 08:00 97.3 75 18 165/83 98 09/16/16 04:30 97.7 70 17 156/73 96 09/16/16 04:00 97.4 71 17 154/81 97 09/16/16 04:00 97.4 71 17 154/81 97 09/16/16 02:30 95.7 70 20 150/72 94 09/15/16 23:40 98.6 79 17 142/68 96 09/15/16 22:35 96.2 73 18 163/80 96 09/15/16 22:30 96.2 73 18 163/80 96 09/15/16 20:20 96.4 75 18 163/75 98 09/15/16 18:30 99.1 71 18 141/76 99 09/15/16 18:15 97.5 70 18 142/98 98 09/15/16 16:00 96.8 76 18 164/74 95 09/15/16 12:58 98.5 89 18 148/80 97 09/15/16 11:57 98.1 93 18 145/71 96 09/16/16 09/16/16 09/16/16 07:00 15:00 23:00 Intake Total 240 ml Balance 240 ml Result Diagram: 09/15/16 9562 Laboratory Results Laboratory Tests Test 09/15/16 09/15/16 09/16/16 11:27 23:15 01:53 Hemoglobin 4.7 GM/DL 6.9 GM/DL Hematocrit 14.9 % 21.0 % Reticulocyte Count 4.1 % Absolute Reticulocyte Count 82.5 MIL/L Blood Type O POSITIVE O POSITIVE Antibody Screen NEGATIVE Crossmatch Leukocyte-Reduced Leukocyte-Reduced Red Blood Red Blood Cells Cells Blood Bank Comment Iron Level 28 MCG/DL Total Iron Binding Capacity 386 MCG/DL Percent Iron Saturation 7.2 % Ferritin 5 NG/ML Lactate Dehydrogenase 190 U/L Total Protein 6.5 GM/DL Vitamin B12 Level 472 PG/ML Immunoglobulin G Total 1110 MG/DL Immunoglobulin A 299 MG/DL Immunoglobulin M 44 MG/DL Immunoglobulin [place]/Lambda 1.96 Ratio [place] Light Chain Analysis 294 MG/DL Lambda Light Chain Analysis 150 MG/DL Administered Medications Medications (Trade) Dose Ordered Sig/Alida Route PRN Reason Start Time Stop Time Status Last Admin Dose Admin Sodium Chloride 2 ml 2 ml BID IV FLUSH 09/15/16 09:00 09/16/16 08:39 Sodium Chloride (NS 1000 ml Inj) 1,000 ml @ 100 mls/hr Q10H IV 09/15/16 11:00 09/15/16 10:40 Acetaminophen/ Hydrocodone Bitart ([place] 5-325 Mg) 1 tab Q4H PRN PO PAIN SCALE 1 TO 5 09/15/16 09:45 09/16/16 02:40 Senna/Docusate Sodium (Chrissy-Colace) 1 tab BID PO 09/15/16 21:00 09/16/16 08:40 Pantoprazole Sodium (Protonix Inj) 40 mg BID IV 09/15/16 21:00 09/16/16 08:37 Hydrochlorothiazide (Hydrodiuril) 25 mg DAILY PO 09/15/16 15:15 09/16/16 08:40 Metoprolol Tartrate 100 mg 100 mg Q12HR PO 09/15/16 15:15 09/16/16 08:39 Sodium Chloride (NS 250 ml Inj) 250 ml @ 15 mls/hr ONCE ONCE IV 09/16/16 02:00 09/16/16 18:39 09/16/16 08:40 Amlodipine Besylate (Norvasc) 5 mg DAILY PO 09/16/16 09:00 09/16/16 08:39 Objective Remarks GENERAL: Older, overweight female, wrapping up in blankets in no distress. SKIN: Warm and dry. HEAD: Normocephalic. EYES: No injection or drainage. NECK: Supple, trachea midline. CARDIOVASCULAR: +S1/S2. RESPIRATORY: Breath sounds equal bilaterally. Mildly diminished to bases. GASTROINTESTINAL: Abdomen soft, non-tender, nondistended. EXTREMITIES: No cyanosis, or edema. MUSCULOSKELETAL: Adequate muscle tone. NEUROLOGICAL: No obvious focal deficit. Awake, alert, and oriented x3. Assessment/Plan Assessment 66 y/o female admitted with profound anemia Plan 1. Hgb 6.8 today. She is currently getting her 2nd unit PRBC transfused. 2. Will receive iron infusion after blood is complete. 3. GI to do upper endoscopy tomorrow. NPO after midnight. Bleeding scan to be done today. 4. Discussed with Dr Ruff, ideally she should have a double balloon endoscopy but this is only done at the [facility]. 5. B12 normal, Hgb electrophoresis pending. Check CBC in am. Attending Statement The exam, history, and the medical decision-making described in the above note were completed with the assistance of the mid-level provider. I reviewed and agree with the findings presented. I attest that I had a [id number] encounter with the patient on the same day, and personally performed and documented my assessment and findings in the medical record. iron studies consistent with iron deficiency and I see no other explanation for current problem except bleeding and subsequent iron loss. she will receive a significant amount of iron and this combined with the transfusions should provide a significant reserve and if bleeding is not brisk the hemoglobin should rise. she will receive iron today. would like to follow outpatient cbc. discussed with Dr. Ruff. Polina Herzog Sep 16, 2016 11:15 Vargas Arcos MD Sep 16, 2016 15:09
--- NOTE | 2016-09-16 12:29 | MB ---
cc: KOLBY ALVARES M.D., RHONDA MD WEISS, RICHARD C. M.D. PASRICHA, SUNIL P. M.D. DATE OF CONSULTATION: 09/16/2016 DATE OF : 1950 REQUESTING PHYSICIAN: Dr. Mcintyre REASON FOR CONSULTATION: Evaluation of GI bleeding. HISTORY OF PRESENT ILLNESS: The patient is a 66-year-old female who has had a long history of intermittent GI bleeding and anemia, microcytic anemia. She apparently has had numerous upper endoscopy and colonoscopy, and previous capsule endoscopy. She was seen by Dr. Alvares on July 11, and he was able to review some of the records she has had in the past. In September 2015 she had colonoscopy which revealed ascending colon polyp which was removed and also upper endoscopy which revealed gastritis at the same time. Dr. Alvares did a capsule endoscopy on her last month, July 2016, and it showed antral erosions which were not bleeding. The small bowel was negative although the capsule never reached the cecum so, therefore, the small bowel was not seen. He ordered a celiac panel which also came back negative. Apparently the patient has been feeling weak, tired and had intermittent chest pain which is better now after transfusion. She came to the emergency room with a low hemoglobin and was found to be profoundly anemic. She is hemoccult positive. She has intermittent dark stools for several weeks to months but she does take iron pills. She does not describe melena per se. We have been asked to evaluate her in this regard. At this time she denies any dysphagia, early satiety, nausea, or vomiting. She does have urgency of stools at times and working diagnosis of possible IBS. There has been no fever or chills, use of aspirin or NSAIDs. PAST SURGICAL HISTORY: 1. Tubal ligation. 2. Hysterectomy. 3. Numerous upper endoscopies. 4. Colonoscopies. 5. She thinks she has had a previous capsule endoscopy also. PAST MEDICAL HISTORY: 1. Anemia - microcytic. 2. She has had heme-positive stools. 3. Dyslipidemia 4. Diabetes 5. Hypertension 6. Colon polyps. 7. Gastritis 8. Gastric erosions. ALLERGIES: MICHAEL INHIBITOR NONCONTRAST MEDIA FAMILY HISTORY Not significant for colon cancer, colon polyps. REVIEW OF SYSTEMS: No weight loss. CARDIOPULMONARY: She had chest pain and shortness of breath but it is better now. No palpitations or wheezing. GASTROINTESTINAL: Please see above. She denies any adalgisa blood per rectum as far as hematochezia is concerned. She had dark stools but does not describe them as being melanotic. Unremarkable 10 point review of systems. MEDICATIONS IN THE HOSPITAL: 1. Iron. 2. Norvasc 3. Catapres. 4. Pericolace. 5. Protonix 6. HydroDIURIL 7. Lopressor 8. Insulin 9. Glucagon. 10. [place]. 11. Zofran 12. Narcan. SOCIAL HISTORY Does not currently smoke or drink. PHYSICAL EXAMINATION: VITAL SIGNS: Blood pressure is 165/83, pulse is 75, respiratory rate 18, temperature 97.3. General: She is an elderly -[place] female, overweight, appears to be in no acute distress at this time. HEENT: Pupils are reactive to light. No obvious scleral icterus. Oropharynx clear, had dental caries. No tongue deviation or candidal lesion. Hearing was intact. NECK: Supple. No thyromegaly or lymphadenopathy. LUNGS: Clear to auscultation and percussion. HEART: Regular rate and rhythm. No gross murmurs are head. ABDOMEN: Soft, non-tender, non-distended. No organomegaly, no ascites, no hernias. EXTREMITIES: No clubbing, cyanosis or edema. NEUROLOGIC: She is oriented x3. No gross sensory motor deficits. SKIN: Warm and moist. DATABASE Hemoglobin on 09/15/2016 was 5.0, hematocrit 17.1 then it dropped to 4.7, after blood last night, hemoglobin came back to 6.9, hematocrit 21. Her MCV is 77, platelet count 255,000. Her BUN is 22 elevated, creatinine 1.10 is elevated, potassium 4.5, iron level was 28, TIBC 386 is normal. Iron saturation 7.2 which is low, ferritin of 5 which is low. SGOT of 27, SGOT of 19, alk phos 79, total bilirubin was 0.1, that was all normal. IMPRESSION 1. Heme-positive stools - there is no active bleeding as far as any red or melanotic stools. However, she does take iron pills so her stools are dark at times. She was heme-positive on this admission on rectal exam done in the emergency room. As mentioned above her colonoscopy in September 2015 reveals descending colon polyps and upper endoscopy at the same time revealed gastritis. Recent capsule endoscopy done last month showed gastric erosions, however, the capsule did not reach the cecum, so therefore the distal small bowel was not seen. Conceivably she may have a small AVM in this area. 2. Anemia. The patient has had numerous procedures without exact etiology. Her celiac panel is negative. 3. gastric erosions. RECOMMENDATIONS: 1. PPI. 2. Transfusion one unit. 3. Agree with iron infusions. Because of the possibility of dark stools, it is prudent to do upper endoscopy to check for any ulcers, AVMs or the stomach or proximal small bowel. We will proceed with upper endoscopy. If she is agreeable we can do it tomorrow morning. We discussed the risks, complications, benefits, alternatives of the procedure, the risks of bleeding, perforation, infection, arrhythmia, and the small possibility of . However, if the upper endoscopy is negative we need to consider a double balloon enteroscopy to look at the entire small bowel for any AVMs, ulcers or malignancy, etc. Unfortunately this is not available in our community as of yet and she may need a tertiary care evaluation in this regard. She is aware of this. MD CARLOS [place]/MAXWELL /11:01 AM /11:48 AM UBALDO
--- NOTE | 2016-09-16 17:08 | RADRPT ---
EXAM DATE/TIME: 09/16/2016 10:46 [facility] COMPARISON: No previous studies available for comparison. INDICATIONS : Anemia and dark stools. History of GI bleed. DOSE: 21.2 mCi Tc99m Ultratag labeled red blood cells IV IMAGIN hrs MEDICAL HISTORY : Hypertension. Diabetes mellitus type 2. SURGICAL HISTORY : Tubal ligation. Hysterectomy. ENCOUNTER: [facility]ela ACUITY: 2 weeks PAIN SCALE: 0/10 LOCATION: Bilateral lower quadrant TECHNIQUE: Following the modified in vitro labeling of autologous red cells, dynamic continuous images were acqu ired for the specified interval. FINDINGS: BIODISTRIBUTION: There is a very good labeling of red cells without significant uptake in the gastric wall. There is good delineation of the blood pool of the spleen and abdominal vessels. BLEEDING: No episodes of active GI bleeding are observed during specified interval of continuous observation. CONCLUSION: 1. Unremarkable GI bleeding scan without evidence for active GI bleeding. Butch Ch MD on September 16, 2016 at 17:05 Board Certified Radiologist. This report was verified electronically.
[2016-09-16 18:01] LABS: AUTOMATED NEUTROPHIL # 10.2 TH/MM3 (1.8-7.7); BASOPHIL % 0.2 % (0.0-2.0); EOSINOPHIL % 0.1 % (0.0-4.0); HEMATOCRIT 32.2 % (35.0-46.0); HEMO FLAGS DIFF FINAL; LYMPH % 10.3 % (9.0-44.0); LYMPHOCYTE # 1.2 TH/MM3 (1.0-4.8); MEAN CELL VOLUME 79.2 FL (80.0-100.0); MEAN CORPUSCULAR HEMOGLOBIN 25.1 PG (27.0-34.0); MEAN CORPUSCULAR HGB CONC 31.8 % (32.0-36.0); MONO % 0.9 % (0.0-8.0); NEUT % 88.5 % (16.0-70.0); PLATELET COUNT 270 TH/MM3 (150-450); RED BLOOD COUNT 4.07 MIL/MM3 (4.00-5.30); RED CELL DISTRIBUTION WIDTH 18.6 % (11.6-17.2); WHITE BLOOD COUNT 11.5 TH/MM3 (4.0-11.0)
[2016-09-16 19:05] LABS: ALT (GPT) 23 U/L (10-53); ANION GAP 12 MEQ/L (5-15); AST (GOT) 30 U/L (15-37); BICARBONATE 23.4 MEQ/L (21.0-32.0); BLOOD UREA NITROGEN 14 MG/DL (7-18); CHLORIDE 106 MEQ/L (98-107); GLOMERULAR FILTRATION RATE 80 ML/MIN (>89); POTASSIUM 3.5 MEQ/L (3.5-5.1); SODIUM (NA) 141 MEQ/L (136-145)
[2016-09-16 19:08] LABS: ALKALINE PHOSPHATASE 92 U/L (45-117); TOTAL BILIRUBIN ADULT 0.3 MG/DL (0.2-1.0)
[2016-09-17 00:45] VITALS: BP 158/76; PULSE 66; RESP 18; TEMP 97; O2SAT 95
[2016-09-17] MEDS ORDERED: CHLORHEXIDINE GLUCONATE 2 % 1 PACK (2 CLOTHS) TOPICAL PRN (02:30)
[2016-09-17] MEDS ORDERED: SODIUM CHLORID 0.9% 500 ML IV PRN (02:30)
[2016-09-17] MEDS ORDERED: LACTATED RINGER'S 1000 ML IV PRN (02:30)
[2016-09-17] MEDS: SODIUM CHLOR 0.9% 1000 ML INJ 1,000 ML IV SCH ×2 (03:00→13:00)
[2016-09-17 04:10] VITALS: BP 151/69; PULSE 65; RESP 18; TEMP 96.8; O2SAT 95
[2016-09-17] MEDS: INSULIN ASPART SUPPLEMENTAL SCALE SQ SCH ×3 (05:57→16:00)
[2016-09-17 06:40] LABS: AUTOMATED NEUTROPHIL # 9.8 TH/MM3 (1.8-7.7); BASOPHIL % 0.1 % (0.0-2.0); HEMATOCRIT 26.7 % (35.0-46.0); HEMO FLAGS DIFF FINAL; LYMPH % 12.8 % (9.0-44.0); LYMPHOCYTE # 1.6 TH/MM3 (1.0-4.8); MEAN CELL VOLUME 78.5 FL (80.0-100.0); MEAN CORPUSCULAR HEMOGLOBIN 26.4 PG (27.0-34.0); MEAN CORPUSCULAR HGB CONC 33.7 % (32.0-36.0); MONO % 6.8 % (0.0-8.0); NEUT % 80.3 % (16.0-70.0); PLATELET COUNT 245 TH/MM3 (150-450); RED CELL DISTRIBUTION WIDTH 18.4 % (11.6-17.2); WHITE BLOOD COUNT 12.2 TH/MM3 (4.0-11.0)
[2016-09-17 06:49] LABS: BICARBONATE 25.7 MEQ/L (21.0-32.0)
[2016-09-17 06:53] LABS: POTASSIUM 3.2 MEQ/L (3.5-5.1)
[2016-09-17 08:00] VITALS: BP 158/77; PULSE 62; RESP 18; TEMP 97.5; O2SAT 95
[2016-09-17] MEDS: PANTOPRAZOLE SODIUM 40 MG VIAL IV SCH (09:25)
[2016-09-17] MEDS: amLODIPine BESYLATE 5 MG TAB PO SCH (09:25)
[2016-09-17] MEDS: HYDROCHLOROTHIAZIDE 25 MG TAB PO SCH (09:26)
[2016-09-17] MEDS: METOPROLOL TARTRATE 100 MG TAB PO SCH (09:26)
[2016-09-17] MEDS: DOCUSATE SODIUM 50 MG/SENNA 8.6 MG TAB PO SCH (09:27)
[2016-09-17] MEDS: SODIUM CHLORIDE 0.9% FLUSH 10 ML FLUSH IV FLUSH SCH (09:28)
--- NOTE | 2016-09-17 09:28 | PD.ONC.PN ---
Subjective Subjective Remarks Afebrile overnight. No BM in several days. EGD today. Tolerated iron infusion yesterday. Objective Data Date Time Temp Pulse Resp B/P Pulse Ox O2 Delivery O2 Flow Rate FiO2 09/17/16 08:00 97.5 62 18 158/77 95 09/17/16 04:10 96.8 65 18 151/69 95 09/17/16 00:45 97.0 66 18 158/76 95 09/16/16 20:40 96.8 85 18 169/79 95 09/16/16 19:17 18 09/16/16 18:00 86 179/73 09/16/16 12:00 97.8 72 18 152/83 94 Result Diagram: 09/17/16 0544 09/17/16 0544 Laboratory Results Laboratory Tests Test 09/16/16 09/17/16 17:26 05:44 White Blood Count 11.5 TH/MM3 12.2 TH/MM3 Red Blood Count 4.07 MIL/MM3 3.40 MIL/MM3 Hemoglobin 10.2 GM/DL 9.0 GM/DL Hematocrit 32.2 % 26.7 % Mean Corpuscular Volume 79.2 FL 78.5 FL Mean Corpuscular Hemoglobin 25.1 PG 26.4 PG Mean Corpuscular Hemoglobin 31.8 % 33.7 % Concent Red Cell Distribution Width 18.6 % 18.4 % Platelet Count 270 TH/MM3 245 TH/MM3 Mean Platelet Volume 8.7 FL 8.7 FL Neutrophils (%) (Auto) 88.5 % 80.3 % Lymphocytes (%) (Auto) 10.3 % 12.8 % Monocytes (%) (Auto) 0.9 % 6.8 % Eosinophils (%) (Auto) 0.1 % 0.0 % Basophils (%) (Auto) 0.2 % 0.1 % Neutrophils # (Auto) 10.2 TH/MM3 9.8 TH/MM3 Lymphocytes # (Auto) 1.2 TH/MM3 1.6 TH/MM3 Monocytes # (Auto) 0.1 TH/MM3 0.8 TH/MM3 Eosinophils # (Auto) 0.0 TH/MM3 0.0 TH/MM3 Basophils # (Auto) 0.0 TH/MM3 0.0 TH/MM3 CBC Comment DIFF FINAL DIFF FINAL Differential Comment Sodium Level 141 MEQ/L 142 MEQ/L Potassium Level 3.5 MEQ/L 3.2 MEQ/L Chloride Level 106 MEQ/L 108 MEQ/L Carbon Dioxide Level 23.4 MEQ/L 25.7 MEQ/L Anion Gap 12 MEQ/L 8 MEQ/L Blood Urea Nitrogen 14 MG/DL 14 MG/DL Creatinine 0.86 MG/DL 0.84 MG/DL Estimat Glomerular Filtration 80 ML/MIN 83 ML/MIN Rate Random Glucose 164 MG/DL 138 MG/DL Calcium Level 9.3 MG/DL 9.0 MG/DL Total Bilirubin 0.3 MG/DL Aspartate Amino Transf 30 U/L (AST/SGOT) Alanine Aminotransferase 23 U/L (ALT/SGPT) Alkaline Phosphatase 92 U/L Total Protein 8.3 GM/DL Albumin 3.7 GM/DL Administered Medications Medications (Trade) Dose Ordered Sig/Alida Route PRN Reason Start Time Stop Time Status Last Admin Dose Admin Sodium Chloride 2 ml 2 ml BID IV FLUSH 09/15/16 09:00 09/16/16 20:48 Sodium Chloride (NS 1000 ml Inj) 1,000 ml @ 100 mls/hr Q10H IV 09/15/16 11:00 09/16/16 20:49 Acetaminophen/ Hydrocodone Bitart (Knott 5-325 Mg) 1 tab Q4H PRN PO PAIN SCALE 1 TO 5 09/15/16 09:45 09/16/16 18:17 Senna/Docusate Sodium (Chrissy-Colace) 1 tab BID PO 09/15/16 21:00 09/16/16 20:47 Pantoprazole Sodium (Protonix Inj) 40 mg BID IV 09/15/16 21:00 09/16/16 20:49 Hydrochlorothiazide (Hydrodiuril) 25 mg DAILY PO 09/15/16 15:15 09/16/16 08:40 Metoprolol Tartrate (Lopressor) 100 mg Q12HR PO 09/15/16 15:15 09/16/16 20:47 Clonidine (Catapres) 0.1 mg Q6H PRN PO SYS BP GREATER THAN 160 MMHG 09/15/16 23:15 09/16/16 18:17 Amlodipine Besylate (Norvasc) 5 mg DAILY PO 09/16/16 09:00 09/16/16 08:39 Objective Remarks GENERAL: Pleasant female, sitting up in chair next to bed in nad. SKIN: Warm and dry. HEAD: Normocephalic. EYES: No injection or drainage. NECK: Supple, trachea midline. CARDIOVASCULAR: Regular rate and rhythm RESPIRATORY: Breath sounds equal bilaterally. No accessory muscle use. GASTROINTESTINAL: Abdomen soft, non-tender, nondistended. EXTREMITIES: No cyanosis NEUROLOGICAL: No obvious focal deficit. Awake, alert, and oriented x3. Assessment/Plan Assessment 66 y/o female admitted with profound anemia Plan 1. tolerated iron infusion. discussed following up in the clinic with Dr. Arcos 2. fs faxed to new patient referrals 3. EGD today 4. monitor CBC Domenica Galeano Sep 17, 2016 09:27 Vargas Arcos MD Sep 18, 2016 20:32
[2016-09-17 09:50] VITALS: BP 174/79; PULSE 66; RESP 18; TEMP 97.5; O2SAT 96
[2016-09-17] MEDS ORDERED: PROPOFOL 200 MG/20 ML AMP IV ONE (10:17)
--- NOTE | 2016-09-17 10:36 | GIPROC ---
[facility] [address] [facility]. [facility], [address] EGD PROCEDURE REPORT EXAM DATE: 09/17/2016 PATIENT NAME: Sridevi Moya MR #: [id number] BIRTHDATE: 1950 ATTENDING: Navarro Ruff MD ORDER #: [id number] AUTOMATIC SHIRRING MACHINE OPERATOR: Randolph Young and Shelbi Mcfarlane STATUS: inpatient INDICATIONS: The patient is a 66 yr old female here for an EGD due to iron deficiency anemia, heme positive stool, and dark BM's (pt on iron) PROCEDURE PERFORMED: EGD, diagnostic MEDICATIONS: None and Per Anesthesia. TOPICAL ANESTHETIC: none CONSENT: The patient understands the risks and benefits of the procedure and understands that these risks include, but are not limited to: sedation, allergic reaction, infection, perforation and/or bleeding. Alternative means of evaluation and treatment include, among others: physical exam, x-rays, and/or surgical intervention. The patient elects to proceed with this endoscopic procedure. medical equipment was checked for proper function. Hand hygiene and appropriate measures for infection prevention was taken. After the risks, benefits and alternatives of the procedure were thoroughly explained, Informed consent was verified, confirmed and timeout was successfully executed by the treatment team. The patient was anesthetized with topical anesthesia and the Pentax [id number]-[id number] and [id number] endoscope was introduced through the mouth and advanced to the third portion of the duodenum. The gastroscope was then slowly withdrawn and removed. ESOPHAGUS: The z-line was located 40cm from the incisors. The mucosa of the esophagus appeared normal. STOMACH: There was mild gastritis in the prepyloric region of the stomach. DUODENUM: The duodenal mucosa appeared normal in the entire duodenum. ADVERSE EVENTS: There were no complications. IMPRESSIONS: 1. The z-line was located 40cm from the incisors 2. The esophagus appeared normal 3. There was mild gastritis in the prepyloric region of the stomach 4. Normal duodenal mucosa in the entire duodenum RECOMMENDATIONS: 1. Avoid NSAIDS 2. Continue PPI PATIENT CONDITION: stable DISPOSITION: Inpatient REPEAT EXAM: NONE Navarro Ruff MD eSigned: Navarro Ruff MD 09/17/2016 10:35 AM cc: PATIENT NAME: Sridevi Moya MR#: [id number]
[2016-09-17] MEDS ORDERED: FLUMAZENIL 0.5 MG/5 ML VIAL IV PRN ×2 (10:45)
[2016-09-17] MEDS ORDERED: NALOXONE HCL 0.4 MG/ML AMP IV PRN (10:45)
--- NOTE | 2016-09-17 10:54 | HHI.FPPN ---
Subjective Remarks Feeling well AFVSS. No concerns. No blood in her stool. (Reji Goodrich MD R2) Objective Vitals Vital Signs Date Time Temp Pulse Resp B/P Pulse Ox O2 Delivery O2 Flow Rate FiO2 09/17/16 09:50 97.5 66 18 174/79 96 09/17/16 08:00 97.5 62 18 158/77 95 09/17/16 04:10 96.8 65 18 151/69 95 09/17/16 00:45 97.0 66 18 158/76 95 09/16/16 20:40 96.8 85 18 169/79 95 09/16/16 19:17 18 09/16/16 18:00 86 179/73 09/16/16 12:00 97.8 72 18 152/83 94 I/O 09/16/16 09/16/16 09/16/16 09/17/16 09/17/16 09/17/16 07:00 15:00 23:00 07:00 15:00 23:00 Intake Total 240 ml 960 ml Balance 240 ml 960 ml Intake Oral 240 ml 960 ml # Voids 2 5 4 # Bowel Movements 0 1 0 (Reji Goodrich MD R2) Result Diagram: 09/17/16 0544 09/17/16 0544 Imaging Last 72 hours Impressions GI Bleed Scan Nuclear Medicine 09/16/16 0000 Signed Impressions: Service Date/Time: Friday, September 16, 2016 10:46 - CONCLUSION: 1. Unremarkable GI bleeding scan without evidence for active GI bleeding. Butch Ch MD Objective Remarks GENERAL: Well-nourished, well-developed patient. SKIN: Warm and dry. HEAD: Normocephalic. EYES: No scleral icterus. No injection or drainage. NECK: Supple, trachea midline. No JVD or lymphadenopathy. CARDIOVASCULAR: 2/6 enoc at left sternal border, pulses bounding RESPIRATORY: Breath sounds equal bilaterally. No accessory muscle use. GASTROINTESTINAL: Abdomen soft, non-tender, nondistended. Surgical scar distal to umbilicus, vertical incision. EXTREMITIES: No cyanosis, or edema. NEUROLOGICAL: Awake, alert, and oriented x 3. Non-focal. (Reji Goodrich MD R2) A/P Assessment and Plan 66 y/o female with chronic anemia presenting with 2-3 weeks of worsening fatigue , lightheadedness, and dark stools. Admitted for suspected upper GI bleed. ( Reji Goodrich MD R2) Attending Attestation Patient seen and examined Case reviewed and discussed Agree with plan of care as discussed with me and documented in the resident note. (Venessa Mcintyre MD) Problem List: (1) Anemia Status: Acute Plan: Hemoglobin on admission 4.7 corrected to 10.2 with 4 units of packed RBCs. Decreased from 10.2 --> 9.0 in past 12 hours. Repeat CBC in morning. Upper endoscopy this morning 08/30. May require double balloon enteroscopy if no source of bleeding was identified. Appreciate GI recs. PLAN: -IV Protonix 40 mg IV, twice a day. -Hematology consulted given chronic anemia. Iron infusion on 09/16, tolerated well. Recommend follow up with Dr. Arcos as an outpatient. We appreciate hematology assistance in the care of Mrs. Moya. (2) Type 2 diabetes mellitus Status: Acute Plan: Hold home medications, insulin sliding scale, NovoLog as needed. (3) Heart murmur Status: Chronic Plan: Heart murmur since adolescence. We'll continue to monitor. Recent cardiac workup negative. (4) Hypertension Status: Chronic Plan: We'll continue home metoprolol 100 mg BID, hydrochlorothiazide 25 mg dialy, and amlodipine 5 mg daily. PRN hydralazine systolic > 160 mm Hg. (5) Hyperlipidemia Status: Chronic Plan: Statin therapy on discharge. Follow-up with PCP. (6) Fluids, Electrolytes, and Nutrition Status: Acute Plan: Electrolytes: At goal, continue to trend. Nutrition: Nothing by mouth. DVT: mechanical ppx / SCDs dw Dr. Mcintyre (Reji Goodrich MD R2) Reji Goodrich MD R2 Sep 17, 2016 10:54 Venessa Mcintyre MD Sep 20, 2016 12:24
[2016-09-17 11:10] VITALS: BP 143/64; PULSE 63; RESP 16; TEMP 97.7; O2SAT 95
[2016-09-17] MEDS ORDERED: POTASSIUM CHLORIDE 10 MEQ CONTROLLED RELEASE TAB PO SCH (14:00)
--- NOTE | 2016-09-17 14:17 | HHI.DCPOC ---
Discharge Care Plan Diagnosis: (1) Melena (2) Anemia (3) Acute blood loss anemia Goals to Promote Your Health * To prevent worsening of your condition and complications * To maintain your health at the optimal level Directions to Meet Your Goals Take your medications as prescribed Follow your dietary instruction Follow activity as directed Keep your appointments as scheduled Take your immunizations and boosters as scheduled If your symptoms worsen call your PCP, if no PCP go to Urgent Care Center or Emergency Room Smoking is Dangerous to Your Health. Avoid second hand smoke Call the 24-hour hour crisis hotline for domestic abuse at Reji Goodrich MD R2 Sep 17, 2016 14:17 Venessa Mcintyre MD Sep 20, 2016 12:25
--- NOTE | 2016-09-17 14:25 | HHI.DS ---
Reji Goodrich MD R2 09/17/16 1424: Discharge Summary Admission Date Sep 15, 2016 at 09:48 Admitting Diagnosis (1) Anemia Plan: Hemoglobin on admission 4.7 corrected to 10.2 with 4 units of packed RBCs. Decreased from 10.2 --> 9.0 in past 12 hours. Repeat CBC in morning. Upper endoscopy this morning 08/30. May require double balloon enteroscopy if no source of bleeding was identified. Appreciate GI recs. PLAN: -IV Protonix 40 mg IV, twice a day. -Hematology consulted given chronic anemia. Iron infusion on 09/16, tolerated well. Recommend follow up with Dr. Arcos as an outpatient. We appreciate hematology assistance in the care of Mrs. Moya. (2) Type 2 diabetes mellitus Plan: Hold home medications, insulin sliding scale, NovoLog as needed. (3) Heart murmur Plan: Heart murmur since adolescence. We'll continue to monitor. Recent cardiac workup negative. (4) Hypertension Plan: We'll continue home metoprolol 100 mg BID, hydrochlorothiazide 25 mg dialy, and amlodipine 5 mg daily. PRN hydralazine systolic > 160 mm Hg. (5) Hyperlipidemia Plan: Statin therapy on discharge. Follow-up with PCP. (6) Fluids, Electrolytes, and Nutrition Plan: Electrolytes: At goal, continue to trend. Nutrition: Nothing by mouth. DVT: mechanical ppx / SCDs dw Dr. Mcintyre Brief History Patient is a 46-year-old black female, with a past medical history of type 2 diabetes, chronic anemia, high blood pressure, high cholesterol, and normal cardiac catheter in 2016, resenting with increasing fatigue, as well as black stools for the past week. HPI: She was evaluated at the [facility] on 09/14, by Dr. Alexander, and a bedside H&H at that time was found be 6.0. She was urged to go to the [place] emergency department. She waited until later that evening, until she got home, to go to the ED. A hemoglobin at that time was 5.1. He was transferred here from [place] emergency department. In general, she has been having increasing weakness, shortness of breath, and dark stools for the past several weeks. She has had 3 colonoscopies in the last 2 years, with the last one being in December 2015. She also more recently had a capsule endoscopy in August 16, 2016. Her anodize machine operator is Dr. Alvares. Per the patient this was within normal limits, and showed no source of bleeding. She denies being on any blood thinners, excessive use of NSAIDs, or alcohol use. CBC/BMP: 09/17/16 0544 09/17/16 0544 Significant Findings Laboratory Tests Test 09/15/16 09/15/16 09/16/16 09/17/16 11:27 23:15 17:26 05:44 Hemoglobin 4.7 GM/DL 6.9 GM/DL 10.2 GM/DL 9.0 GM/DL (11.6-15.3) (11.6-15.3) (11.6-15.3) (11.6-15.3) Hematocrit 14.9 % 21.0 % 32.2 % 26.7 % (35.0-46.0) (35.0-46.0) (35.0-46.0) (35.0-46.0) Reticulocyte Count 4.1 % (0.4-3.0) Iron Level 28 MCG/DL (50-170) Percent Iron Saturation 7.2 % (20-50) Ferritin 5 NG/ML (8-252) Immunoglobulin M 44 MG/DL (45-276) White Blood Count 11.5 TH/MM3 12.2 TH/MM3 (4.0-11.0) (4.0-11.0) Mean Corpuscular Volume 79.2 FL 78.5 FL (80.0-100.0) (80.0-100.0) Mean Corpuscular Hemoglobin 25.1 PG 26.4 PG (27.0-34.0) (27.0-34.0) Mean Corpuscular Hemoglobin 31.8 % Concent (32.0-36.0) Red Cell Distribution Width 18.6 % 18.4 % (11.6-17.2) (11.6-17.2) Neutrophils (%) (Auto) 88.5 % 80.3 % (16.0-70.0) (16.0-70.0) Neutrophils # (Auto) 10.2 TH/MM3 9.8 TH/MM3 (1.8-7.7) (1.8-7.7) Estimat Glomerular Filtration 80 ML/MIN (>89) 83 ML/MIN (>89) Rate Random Glucose 164 MG/DL 138 MG/DL (74-106) (74-106) Total Protein 8.3 GM/DL (6.4-8.2) Red Blood Count 3.40 MIL/MM3 (4.00-5.30) Potassium Level 3.2 MEQ/L (3.5-5.1) Chloride Level 108 MEQ/L (98-107) PE at Discharge GENERAL: Well-nourished, well-developed patient. SKIN: Warm and dry. HEAD: Normocephalic. EYES: No scleral icterus. No injection or drainage. NECK: Supple, trachea midline. No JVD or lymphadenopathy. CARDIOVASCULAR: 2/6 enoc at left sternal border, pulses bounding RESPIRATORY: Breath sounds equal bilaterally. No accessory muscle use. GASTROINTESTINAL: Abdomen soft, non-tender, nondistended. Surgical scar distal to umbilicus, vertical incision. EXTREMITIES: No cyanosis, or edema. NEUROLOGICAL: Awake, alert, and oriented x 3. Non-focal. Hospital Course Patient was admitted on 2016 for symptomatic anemia of 4.9 g/dL and dark stool. She was found to have a heme occult positive stool. She received 4 units of packed RBCS, and her hgb corrected to 10.0 on day 2 of admission. She also was evaluated by hematology and a series of labwork was performed, which indicated an iron deficiency anemia. She was transferred IV iron during her hospitalization. She also received a upper endoscopy which showed mild gastritis but no obvious source of bleeding. A double balloon enteroscopy was recommended by GI as an outpatient at a tertiary care center capable of doing so. A tagged RBC scan was also negative for any signs of acute bleeding. The patient felt well upon discharge and was discharged in stable condition. She has an outpatient script for CBC in 1-2 days and [facility]. Pt Condition on Discharge: Stable Discharge Disposition: Hospice/Med Facility Discharge Instructions DIET: Follow Instructions for: Diabetic Diet Activities you can perform: Regular-No Restrictions Venessa Mcintyre MD 09/20/16 1225: Discharge Summary CBC/BMP: 09/17/16 0544 09/17/16 0544 Reji Goodrich MD R2 Sep 17, 2016 14:24 Venessa Mcintyre MD Sep 20, 2016 12:25
[2016-09-17] MEDS ORDERED: amLODIPine BESYLATE 5 MG TAB PO SCH (15:00)
[2016-09-17 16:00] VITALS: BP 144/69; PULSE 64; RESP 16; TEMP 97.8; O2SAT 94
[2016-09-18 22:07] LABS: ALBUMIN SPE 3.69 GM/DL (3.50-5.00); ALPHA 1 GLOBULIN 0.25 GM/DL (0.11-0.29); ALPHA 2 GLOBULIN 0.73 GM/DL (0.22-1.00); BETA GLOBULINS (SPE) 0.79 GM/DL (0.53-1.03)
== END 2016-09-17 18:16 | disposition home or self-care (01) | DRG 378 ==
LOC: NEDDLT 08:12 → N06B 08:22 → OBSVTOIN 09:48
PROVIDERS: ADMIT Family Medicine; ATTEND Family Medicine
PROC: 30233N1 Transfusion of Nonautologous Red Blood Cells into Peripheral Vein, Percutaneous Approach (ICD-10-PCS; principal; 2016-09-15)
PROC: 0DJ08ZZ Inspection of Upper Intestinal Tract, Via Natural or Artificial Opening Endoscopic (ICD-10-PCS; 2016-09-17)
DX: K92.2 Gastrointestinal hemorrhage, unspecified (principal); D62 Acute posthemorrhagic anemia; I10 Essential (primary) hypertension; E11.9 Type 2 diabetes mellitus without complications; E78.5 Hyperlipidemia, unspecified; K29.70 Gastritis, unspecified, without bleeding; R01.1 Cardiac murmur, unspecified; Z91.14 Patient's other noncompliance with medication regimen
CPT/HCPCS: 36430; 71010; 78278; 80048; 80053; 82607; 82728; 82784; 82948; 83540; 83550; 83615; 83883; 84165; 84484; 85014; 85018; 85025; 85044; 86334; 86850; 86900; 86901; 86920; 87338; 93005; 94150; 99281; A9560; C9113; J1100; J1750; J7030; J7040; J7050; P9016; Q0163

== ENCOUNTER → 2016-09-19 | Outpatient (CLI) | payer OTHER ==
[~2016-09-19] MED LIST changes: -ACET500T3 PO; -CALTTAB PO; -FERR1TAB36 PO; -FERR325C PO; -LIPI80TA PO
[2016-09-19 11:46] LABS: AUTOMATED NEUTROPHIL # 9.6 TH/MM3 (1.8-7.7); BASOPHIL # 0.1 TH/MM3 (0-0.2); BASOPHIL % 0.9 % (0.0-2.0); EOSINOPHIL # 0.2 TH/MM3 (0-0.4); EOSINOPHIL % 1.3 % (0.0-4.0); LYMPH % 18.9 % (9.0-44.0); LYMPHOCYTE # 2.5 TH/MM3 (1.0-4.8); MEAN CELL VOLUME 80.3 FL (80.0-100.0); MEAN CORPUSCULAR HEMOGLOBIN 25.6 PG (27.0-34.0); MEAN CORPUSCULAR HGB CONC 31.9 % (32.0-36.0); MONO % 7.3 % (0.0-8.0); NEUT % 71.6 % (16.0-70.0); PLATELET COUNT 397 TH/MM3 (150-450); RED BLOOD COUNT 4.61 MIL/MM3 (4.00-5.30); RED CELL DISTRIBUTION WIDTH 19.4 % (11.6-17.2); WHITE BLOOD COUNT 13.4 TH/MM3 (4.0-11.0)
[2016-09-19 11:49] LABS: HEMO FLAGS AUTO DIFF
[2016-09-19 13:03] LABS: POLYCHROMASIA 2.7 % (0.0-1.9)
[2016-09-19 13:04] LABS: OVALOCYTES 1+ (NORMAL)
[2016-09-19 13:05] LABS: PLATELET ESTIMATE SMEAR NORMAL (NORMAL); PLATELET MORPHOLOGY ENLARGED (NORMAL); SCAN/DIFF AUTO DIFF CONFIRMED
== END ==
LOC: CLAB 11:22
PROVIDERS: ATTEND Family Medicine
DX: D62 Acute posthemorrhagic anemia (principal)
CPT/HCPCS: 36415; 85025

== ENCOUNTER → 2016-10-16 | Outpatient (CLI) | payer OTHER ==
[2016-10-16 11:47] LABS: AUTOMATED NEUTROPHIL # 5.7 TH/MM3 (1.8-7.7); BASOPHIL # 0.1 TH/MM3 (0-0.2); BASOPHIL % 0.8 % (0.0-2.0); EOSINOPHIL # 0.1 TH/MM3 (0-0.4); EOSINOPHIL % 1.3 % (0.0-4.0); HEMATOCRIT 34.5 % (35.0-46.0); HEMO FLAGS DIFF FINAL; LYMPH % 23.2 % (9.0-44.0); MEAN CELL VOLUME 82.2 FL (80.0-100.0); MEAN CORPUSCULAR HEMOGLOBIN 27.5 PG (27.0-34.0); MEAN CORPUSCULAR HGB CONC 33.4 % (32.0-36.0); MONO % 8.1 % (0.0-8.0); NEUT % 66.6 % (16.0-70.0); PLATELET COUNT 223 TH/MM3 (150-450); RED CELL DISTRIBUTION WIDTH 22.2 % (11.6-17.2); WHITE BLOOD COUNT 8.6 TH/MM3 (4.0-11.0)
== END ==
LOC: CLAB 11:25
PROVIDERS: ATTEND Internal Medicine Hematology & Oncology
DX: D64.9 Anemia, unspecified (principal)
CPT/HCPCS: 36415; 85025